=== PATIENT | female | born 1970 | race Caucasian/White ===

== ENCOUNTER 2024-09-03 15:18 | Emergency (ER) | payer BC, SELFPAY ==
[2024-09-03 15:24] VITALS: BP 147/97
--- NOTE | 2024-09-03 18:31 | ED.GENMED ---
History of Present Illness
<Deepthi Louis ROTARY FILTER OPERATOR - Last Filed: 09/05/24 15:37>
General
Chief Complaint: Musculo-Skeletal Complaint
Source: patient
Exam Limitations: none
Time Seen by Provider: 09/03/24 18:20
Nursing documentation reviewed up to this point in time: agreed with
History of Present Illness
History of Present Illness:
54 yo female with no clinically significant PMHX presents for neck pain and stiffness. States she awakened yesterday with pain, stiffness, left side of neck that has gotten worse since. Significantly limited ROM to rotating head. Pain with
swallowing, denies sore throat or ear pain. Denies fever/chills. Denies n/v. No recollection of overuse or injury. Took Advil earlier today with little relief.
Past History
<Deepthi Louis, ROTARY FILTER OPERATOR - Last Filed: 09/05/24 15:37>
Past History
ED Past Medical History: Asthma
ED Past Surgical History: Gynecological and Other (hernia)
Review of Systems
<Deepthi Louis, ROTARY FILTER OPERATOR - Last Filed: 09/05/24 15:37>
Review of Systems
Allergies reviewed?: Yes
All Other Systems: ROS reviewed and negative except as documented in HPI and ROS
Constitutional: Denies fever or chills
EENT: Reports sore throat (pain with swallowing)
Respiratory: Denies trouble breathing
Cardiac: Denies chest pain
ABD/GI: Denies abdominal pain or nausea
Musculoskeletal: Reports neck pain; Denies back pain
Skin: Reports no symptoms
Neurological: Reports headache (from neck pain); Denies dizzy, weakness or numbness
Phy Exam
<Deepthi Louis, ROTARY FILTER OPERATOR - Last Filed: 09/05/24 15:37>
Physical Exam
Physical Exam:
GENERAL: No acute distress. A&Ox3.
CONSTITUTIONAL: Afebrile.
EYES: clear, conjunctivae normal
Neck: Significantly limited ROM.
ENMT: moist mucus membranes, Pharynx nl, swallowing well
RESPIRATORY: Regular respirations, nonlabored, lungs clear.
CARDIOVASCULAR: Regular rate and rhythm, no murmurs, no rubs.
GI: Soft, nontender
MUSCULOSKELETAL: tender left submandibular and sternocleidomastoid muscle. No spinal bony tenderness. Significant limited ROM to rotation to either side, flexion not so painful. Mild submandibular lymphadenopathy. Moves with ease. Well perfused.
SKIN: Warm, dry, pink
PSYCH: Normal mood and affect. Well kept, interactive and appropriate
NEUROLOGIC: Awake, alert and oriented. No focal neurological deficits
Course
Cherellelt;Deepthi Louis ROTARY FILTER OPERATOR - Last Filed: 09/05/24 15:37>
Orders/Labs/Results
Orders:
Orders
09/03/24 18:30
CT Neck With Iv Contrast Urgent
Comment:
Reason For Exam: L neck pain, stiff, pain w swallowing
09/03/24 18:43
Complete Blood Count/With Diff Urgent
Comprehensive Metabolic Panel Urgent
09/03/24 18:56
Dexamethasone Sod Phosphate [Decadron] 10 mg IV NOW STA
Ketorolac [Toradol] 15 mg IV NOW STA
Abnormal Lab Results
09/03/24
18:43
WBC 11.3 H 10^3/uL
(4.8-10.8)
Absolute Neuts (auto) 8.1 H 10^3/uL
(1.4-6.5)
Absolute Monos (auto) 0.7 H 10^3/uL
(0.1-0.6)
Lymphocytes % 20.1 L %
(20.5-51.1)
Glucose 103 H mg/dl
(70-99)
09/03/24 18:43
09/03/24 18:43
Vital Signs
Initial and Last Documented VS:
Initial Vital Signs
Temp Pulse Resp BP Pulse Ox
98.1 F 81 16 147/97 100
09/03/24 15:24 09/03/24 15:24 09/03/24 15:24 09/03/24 15:24 09/03/24 15:24
Last Documented Vital Signs
Temp Pulse Resp BP Pulse Ox
98.1 F 81 18 140/90 98
09/03/24 15:24 09/03/24 21:36 09/03/24 21:36 09/03/24 21:36 09/03/24 21:36
<Obed Cifuentes MD - Last Filed: 09/04/24 08:40>
Orders/Labs/Results
Orders:
Orders
09/03/24 18:30
CT Neck With Iv Contrast Urgent
Comment:
Reason For Exam: L neck pain, stiff, pain w swallowing
09/03/24 18:43
Complete Blood Count/With Diff Urgent
Comprehensive Metabolic Panel Urgent
09/03/24 18:56
Dexamethasone Sod Phosphate [Decadron] 10 mg IV NOW STA
Ketorolac [Toradol] 15 mg IV NOW STA
Abnormal Lab Results
09/03/24
18:43
WBC 11.3 H 10^3/uL
(4.8-10.8)
Absolute Neuts (auto) 8.1 H 10^3/uL
(1.4-6.5)
Absolute Monos (auto) 0.7 H 10^3/uL
(0.1-0.6)
Lymphocytes % 20.1 L %
(20.5-51.1)
Glucose 103 H mg/dl
(70-99)
09/03/24 18:43
09/03/24 18:43
Vital Signs
Initial and Last Documented VS:
Initial Vital Signs
Temp Pulse Resp BP Pulse Ox
98.1 F 81 16 147/97 100
09/03/24 15:24 09/03/24 15:24 09/03/24 15:24 09/03/24 15:24 09/03/24 15:24
Last Documented Vital Signs
Temp Pulse Resp BP Pulse Ox
98.1 F 81 18 140/90 98
09/03/24 15:24 09/03/24 21:36 09/03/24 21:36 09/03/24 21:36 09/03/24 21:36
<Deepthi Louis ROTARY FILTER OPERATOR - Last Filed: 09/05/24 15:37>
MDM/Problems Addressed
Differential Diagnosis Includes:
Torticollis, neck tissue infection/retropharyngeal abscess
MDM/Problems Addressed:
54 yo female with no clinically significant PMHX presents for neck pain and stiffness. States she awakened yesterday with pain, stiffness, left side of neck that has gotten worse since. Significantly limited ROM to rotating head. Pain with
swallowing, denies sore throat or ear pain. Denies fever/chills. Denies n/v. No recollection of overuse or injury. Took Advil earlier today with little relief.
Afebrile, tender left submandibular and sternocleidomastoid muscle. No spinal bony tenderness. Significant limited ROM to rotation to either side, flexion not so painful. Mild submandibular lymphadenopathy
May simply be torticollis but will r/o for deep tissue infection with neck CT
7:00 p.m.
Case discussed with Dr. Cifuentes who will assume care from this point.
Toradol and Decadron ordered
CT neck w IV contrast pending
<Deepthi Louis NP - Last Filed: 09/05/24 15:37>
*Critical Care Note
Total Time (30-74mins, 75-104mins- exclusive of procedures): Not Applicable
<Obed Cifuentes MD - Last Filed: 09/04/24 08:40>
Update Note
Update Note:
CT neck - no acute findings. Pt otherwise with unremarkable workup. Pt will be given short course of tramadol, along with recommendation to utilize warm compress, as well as close PCP f/u as outpatient.
ED Attending Note
<Deepthi Louis ROTARY FILTER OPERATOR - Last Filed: 09/05/24 15:37>
-
Portions of this chart may have been created with voice recognition software.� Occasional wrong word or��sound alike� substitutions may have occurred due to the inherent limitations of voice recognition software.
Discharge Plan
Departure
Patient Disposition: Home (Routine Discharge)
Date of Disposition: 09/03/24
Time of Disposition: 20:56
Patient with high blood pressure during this ER visit?: Yes
Condition: Good
Discharge Problem:
Neck pain
Instructions: Neck Pain ED
Prescriptions:
New
tramadol 50 mg tablet
50 mg PO Q8H PRN (Reason: Pain) Qty: 20 0RF
Referrals:
Malka Clancy PA-C [Family Provider] -
Activity Restrictions/Additional Instructions:
As discussed, please follow-up with your primary care physician for reevaluation. In ED, blood work and CT scan of neck did not reveal any acute abnormal findings. Your prescription has been sent electronically to [facility] pharmacy in [place].
Interventions
Interventions:
*Risk Screen - Suicide Last Done: 09/03/24 15:24
*General Assessment Last Done: 09/03/24 16:39
*Neglect/Abuse Screening Last Done: 09/03/24 15:24
*ED COVID-19 Vaccine History Last Done: 09/03/24 16:39
*Nursing Disposition Last Done: 09/03/24 21:36
ED-Musculoskeletal Assessment Last Done: 09/03/24 16:39
Discharge Date and Time
Discharge Date/Time: 09/03/24 21:37
Print Language: [place]
[2024-09-03 18:54] LABS: % Basophils 0.5 % (0-2); % Eosinophils 1.5 % (0-6); % Immature Granulocytes 0.3 % (0-0.5); % Lymphocytes 20.1 % (20.5-51.1); % Monocytes 6.2 % (1.7-9.3); % Neutrophils 71.4 % (42.2-75.2); Absolute Basophils 0.1 10^3/uL (0-0.2); Absolute Eosinophils 0.2 10^3/uL (0-0.7); Absolute Lymphocytes 2.3 10^3/uL (1.2-3.4); Absolute Monocytes 0.7 10^3/uL (0.1-0.6); Absolute Neutrophils 8.1 10^3/uL (1.4-6.5); Hemoglobin 14.7 g/dL (12.0-16.0); Mean Corp Hgb Conc. 34.2 g/dL (33.0-37.0); Mean Corpuscular Hgb 29.2 pg (27.0-31.0); Mean Corpuscular Volume 85.5 fL (81.0-99.0); Mean Platelet Volume 9.9 fL (7.4-10.4); Nucleated Red Blood Cells % 0 %; Platelet Count 275 10^3/uL (130-400); Red Blood Cell Count 5.03 10^6/uL (4.20-5.40); Red Cell Dist. Width 12.9 % (11.5-14.5); White Blood Cell Count 11.3 10^3/uL (4.8-10.8)
--- NOTE | 2024-09-03 19:10 | EDRN ---
this EXECUTIVE SALES MANAGER is assisting this pts primary CLINICAL LABORATORY TECHNICIAN by placing IV access for ordered imaging studies and giving ordered IVP medications
[2024-09-03 19:11] LABS: ALT (SGPT) 20 U/L (0-35); AST (SGOT) 23 U/L (14-36); Albumin 4.7 g/dl (3.5-5.0); Alkaline Phosphatase 83 U/L (38-126); Blood Urea Nitrogen 11 mg/dl (7-17); Calcium 9.8 mg/dl (8.4-10.2); Carbon Dioxide 29 mmol/L (22-30); Chloride 100 mmol/L (98-107); Glucose 103 mg/dl (70-99); Potassium 4.3 mmol/L (3.5-5.1); Sodium 141 mmol/L (135-145); Total Bilirubin 0.8 mg/dl (0.2-1.3); Total Protein 7.6 g/dl (6.3-8.2); eGFR > 60.00
[2024-09-03] MEDS: TORADOL 15 MG IV (19:12)
[2024-09-03] MEDS: DECADRON 10 MG IV (19:14)
[2024-09-03 21:36] VITALS: BP 140/90
== END 2024-09-03 21:37 | disposition home or self-care (01) ==
LOC: EMR 15:18
PROVIDERS: Registered Nurse; EMERGENCY PHYSICIAN Emergency Medicine; FAMILY PHYSICIAN Physician Assistant
DX: M54.2 Cervicalgia (principal); M43.6 Torticollis; R51.9 Headache, unspecified; J02.9 Acute pharyngitis, unspecified; R59.0 Localized enlarged lymph nodes; R03.0 Elevated blood-pressure reading, without diagnosis of hypertension; J45.909 Unspecified asthma, uncomplicated
CPT/HCPCS: 99284; 96374; 96375; 70491; 80053; 85025; Q9967